=== PATIENT | female | born 1990 | race Caucasian/White ===

== ENCOUNTER 2017-05-19 18:14 | Emergency (ER) | payer BC, OTHER ==
[~2017-05-19] VITALS: Ht 167.6 cm; Wt 104.3 kg
[~2017-05-19 18:14] MED LIST: NOHOMEMEDS
[2017-05-19 19:00] LABS: HEMATOCRIT 40.6 % (36.0-46.0); MCH 31.1 PG (29.0-34.0); MCV 91.4 FL (83-99); MEAN PLAT.VOLUME 12.8 uM^3 (9.5-12.4); PLATELET COUNT 223 K/uL (156-360); RBC DIS.WIDTH-SD 40.4 % (39-53); RED BLOOD COUNT 4.44 M/uL (3.80-5.20); WHITE BLOOD COUNT 6.1 K/uL (4.1-10.2)
[2017-05-19 19:11] LABS: CHLORIDE 106 mEq/L (99-109); POTASSIUM 4.3 mEq/L (3.7-5.4); SODIUM 139 mEq/L (136-147)
[2017-05-19 19:13] LABS: GLUCOSE 87 mg/dL (70-99)
[2017-05-19 19:14] LABS: ANION GAP 9 MEQ/L (2-14)
[2017-05-19 19:15] LABS: TOTAL BILIRUBIN 0.2 mg/dL (0.0-1.0)
[2017-05-19 19:17] LABS: ALKALINE PHOSPHATASE 68 IU/L (3-129); GFR ESTIMATE (CALCULATED) > 59 mL/min/
[2017-05-19 19:18] LABS: UREA NITROGEN (BUN) 8 mg/dL (9-23)
[2017-05-19 19:34] LABS: ADD MIUA? NO; BILIRUBIN NEGATIVE; BLOOD NEGATIVE; COLOR YELLOW ((YELLOW)); GLUCOSE (STRIP) NEGATIVE; KETONES NEGATIVE; LEUKOCYTES NEGATIVE; NITRITE NEGATIVE; PROTEIN (STRIP) NEGATIVE; SPECIFIC GRAVITY 1.027 (1.000-1.030); UCUL ADDED? NO; UROBILINOGEN 0.2 MG/DL (0.2-1.0)
[2017-05-19 19:42] LABS: LIPASE 54 U/L (1.0-51.0); QUANTITATIVE HCG < 4.0 MIU/ML
[2017-05-19 19:47] LABS: TROP-I INTERPRETATION NEGATIVE; TROPONIN-I < 0.01 ng/mL (0.0-0.30)
[2017-05-19] MEDS ORDERED: ZOFRAN ODT4 MG PO (20:20)
[2017-05-19] MEDS ORDERED: BENTYL20 MG PO (20:20)
[2017-05-19 20:30] VITALS: BP 163/89
== END 2017-05-19 20:51 | disposition home or self-care (01) ==
LOC: EME 18:14
DX: K85.90 Acute pancreatitis without necrosis or infection, unspecified (principal); R07.9 Chest pain, unspecified; R42 Dizziness and giddiness; Z90.49 Acquired absence of other specified parts of digestive tract
CPT/HCPCS: 71020; 74177; 80053; 81003; 83690; 84484; 84702; 85027; 93005; 99281; 99284; J1885

== ENCOUNTER 2017-12-27 06:25 | Emergency (ER) | payer OTHER ==
[~2017-12-27] VITALS: Ht 167.6 cm; Wt 105.6 kg
[~2017-12-27 06:25] MED LIST changes: +BENTYL20 MG PO; +ZOFRAN ODT4 MG PO
[2017-12-27 07:04] LABS: HEMATOCRIT 37.3 % (36.0-46.0); HEMOGLOBIN 12.7 G/DL (11.9-15.5); MCH 30.2 PG (29.0-34.0); MCV 88.8 FL (83-99); RBC DIS.WIDTH-CV 12.7 % (11.8-14.6); RBC DIS.WIDTH-SD 41.4 % (39-53); WHITE BLOOD COUNT 7.2 K/uL (4.1-10.2)
[2017-12-27 07:30] LABS: CHLORIDE 105 MEQ/L (99-109); POTASSIUM 3.6 MEQ/L (3.7-5.4); SODIUM 135 MEQ/L (136-147)
[2017-12-27 07:33] LABS: TROP-I INTERPRETATION NEGATIVE; TROPONIN-I < 0.01 ng/mL (0.0-0.30)
[2017-12-27 07:36] LABS: CREATININE 0.7 MG/DL (0.6-1.3); GFR ESTIMATE (CALCULATED) > 59 mL/min/; GLUCOSE 90 mg/dL (70-99); UREA NITROGEN (BUN) 7 mg/dL (9-23)
[2017-12-27 07:53] LABS: PLAT.SUFFICIENCY ADEQUATE; PLATELET COUNT 213 K/uL (156-360)
[2017-12-27 07:57] LABS: QUANTITATIVE HCG 108541.5 MIU/ML
[2017-12-27 08:53] LABS: APPEARANCE SL.HAZY ((CLEAR)); BILIRUBIN NEGATIVE; BLOOD NEGATIVE; COLOR YELLOW ((YELLOW)); GLUCOSE (STRIP) NEGATIVE; KETONES NEGATIVE; LEUKOCYTES NEGATIVE; NITRITE NEGATIVE; PROTEIN (STRIP) 30; SPECIFIC GRAVITY 1.029 (1.000-1.030); UROBILINOGEN 0.2 MG/DL (0.2-1.0)
[2017-12-27] MEDS ORDERED: VITAMIN B-625 MG PO (08:55)
[2017-12-27 08:58] LABS: BACTERIA RARE /HPF; CALCIUM OXALATE CRYSTALS 1+ /HPF; EPITHELIAL CELLS RARE /HPF; MUCUS 1+ /LPF; RED BLOOD CELLS 0-5 /HPF (0-5); WHITE BLOOD CELLS 0-5 /HPF (0-5)
[2017-12-27 09:36] VITALS: BP 101/66
== END 2017-12-27 09:38 | disposition home or self-care (01) ==
LOC: EME 06:25
PROVIDERS: Emergency Medicine
DX: O21.9 Vomiting of pregnancy, unspecified (principal); O26.891 Other specified pregnancy related conditions, first trimester; R07.9 Chest pain, unspecified; Z3A.08 8 weeks gestation of pregnancy; Z88.5 Allergy status to narcotic agent; Z88.6 Allergy status to analgesic agent
CPT/HCPCS: 71046; 80048; 81003; 84484; 84702; 85027; 85379; 93005; 99281; 99284; J2405; J7030